=== PATIENT | female | born 1965 | race Caucasian/White ===

== ENCOUNTER 2021-01-24 21:26 | Emergency (ER) | payer BC ==
[~2021-01-24] VITALS: Ht 157.5 cm; Wt 85.7 kg
[2021-01-24 21:48] VITALS: BP_SYST 149
--- NOTE | 2021-01-24 22:06 | NUR ---
Patient to ER bed 2 to gown for evaluation. Side rails up. Report given to HANY Yeh.
--- NOTE | 2021-01-24 22:06 | NUR ---
Pt c/o left knee pain s/p slip and fall while at [employer] a few hours ago. Pt states that she slipped in water while coming out of the restroom, landing on left knee. Swelling noted to site, no noticeable bruising, pain with movement. Pedal pulses strong. Denies hitting head or LOC.
--- NOTE | 2021-01-24 22:30 | NUR ---
Dr. Dc at bedside assessing pt.
[2021-01-24] MEDS ORDERED: IBUPROFEN 600 MG TABLET PO ONE (23:30)
[2021-01-24] MEDS ORDERED: IBUPROFEN 600 MG TABLET ONE (23:38)
[2021-01-25] MEDS ORDERED: HYDR-3917 PO (01:05)
--- NOTE | 2021-01-25 01:35 | NUR ---
Left leg brace applied per EMT.
[2021-01-25 01:36] VITALS: BP_SYST 149
--- NOTE | 2021-01-25 01:40 | NUR ---
Patient given written and verbal discharge instructions and verbalizes understanding. DR. PRATIBHA CHILDS MD discussed with patient the results and treatment provided. Patient in stable condition. ID arm band removed. Rx of NORCO 5 given. Patient educated on pain management and to follow up with PMD. Pain Scale 0/10 Opportunity for questions provided and answered. Medication side effect fact sheet provided.
== END 2021-01-25 01:40 | disposition home or self-care (01) ==
LOC: SED 21:26
DX: S63.502A Unspecified sprain of left wrist, initial encounter (principal); M23.92 Unspecified internal derangement of left knee; Z79.899 Other long term (current) drug therapy; W01.0XXA Fall on same level from slipping, tripping and stumbling without subsequent striking against object, initial encounter; Y93.89 Activity, other specified; Y92.89 Other specified places as the place of occurrence of the external cause; Y99.8 Other external cause status
CPT/HCPCS: 73564; 99284

== ENCOUNTER 2021-04-16 16:48 | Emergency (ER) | payer BC ==
[~2021-04-16 16:48] MED LIST: HYDR-3917 PO
--- NOTE | 2021-04-16 16:48 | NUR ---
PT ASKED TO SPEAK TO CHARGE NURSE, I WENT TO SPEAK WITH PT AND SHE STATES THAT SHE WILL NOT BE WAITING IN WAITING ROOM BUT WILL BE IN HER CAR IN THE PARKING LOT, AND FOR THE TRIAGE NURSE TO GO LOOK FOR HER THERE. EXPLAINED TO HER THAT SHE NEEDS TO WAIT IN WAITING ROOM AND THAT I WILL NOT BE SEARCHING THE PARKING LOT FOR HER. IT IS RAINING VERY HARD AND WE HAVE ABOUT 20 PATIENTS WAITING. PT BECAME IRATE AND STARTED YELLING AT STAFF, DEMANDING THAT SHE IS ONE WHO IS GONNA TELL ME WHAT TO DO. EXPLAINED TO HER THAT IS NOT OUR PROTOCOL TO SEARCH FOR PATIENTS IN THE CARS. PT TOOK MY NAME AND LEFT WITHOUT BEING SEEN.
== END 2021-04-16 17:00 | disposition left against medical advice (07) ==
LOC: SED 16:48
DX: M79.643 Pain in unspecified hand (principal); Z53.21 Procedure and treatment not carried out due to patient leaving prior to being seen by health care provider